=== PATIENT | male | born 1995 | race Caucasian/White ===

== ENCOUNTER 2022-06-23 10:55 | Emergency (ER) | payer SELFPAY ==
[~2022-06-23] VITALS: Ht 175.3 cm; Wt 114.0 kg
[2022-06-23 11:02] VITALS: BP 166/107
[2022-06-23 11:17] LABS: BASOPHILS % 0.3 % (0.0-2.0); HEMATOCRIT. 41.3 % (42.0-52.0); HEMOGLOBIN. 14.4 g/dL (14.0-18.0); LYMPHOCYTES % 14.3 % (20.0-50.0); MEAN CORPUSCULAR VOLUME 83.3 fL (80.0-94.0); MONOCYTES % 4.5 % (2.0-8.0); NEUTROPHILS % 80.9 % (40.0-76.0); PLATELET 254 x1000/uL (130-400); RED BLOOD CELL COUNT 4.96 mill/uL (4.7-6.1); RED CELL DISTRIBUTION WIDTH 14.1 % (11.6-14.6)
[2022-06-23 12:14] LABS: CHLORIDE 102 mEq/L (98-107)
== END 2022-06-23 13:50 ==
LOC: ER 10:55
DX: R07.89 Other chest pain (principal); F14.10 Cocaine abuse, uncomplicated
CPT/HCPCS: 36415; 71045; 80053; 84484; 85025; 93005; 99285